=== PATIENT | female | born 1945 | race Caucasian/White ===

== ENCOUNTER 2016-09-29 19:14 | Emergency (ER) | payer MEDICARE, BC ==
[2011-09-06 06:36] VITALS: BMI 42.6
[2016-09-29 20:08] LABS: BASOPHILS 0.6 % (0.0-2.0); EOSINOPHILS 3.8 % (0-7); HEMATOCRIT 43.9 % (36.0-48.0); IMMATURE GRANULOCYTES 0.3 % (0-5); LYMPHOCYTES 27.5 % (15-50); MCH 31.8 pg (26.0-34.0); MCHC 34.2 g/dL (31.0-37.0); MCV 93.2 fL (80.0-100.0); MEAN PLATELET VOLUME 9.7 fL (7.4-10.4); MONOCYTES 8.4 % (2-11); NEUTROPHILS 59.4 % (40-80); PLATELET COUNT 231 10x3/uL (130-400); RBC 4.71 10x6/uL (4.00-5.40); RDW 13.7 % (11.5-14.5); WBC 11.4 10x3/uL (4.8-10.8)
[2016-09-29 20:28] LABS: ALBUMIN 3.5 g/dL (3.4-5.0); ALKALINE PHOSPHATASE 73 U/L (46-116); ALT (SGPT) 30 U/L (10-68); BILIRUBIN - TOTAL 0.46 mg/dL (0.2-1.3); CALC OSMOLALITY 285 mosm/kg (275-300); CALCIUM 9.4 mg/dL (8.5-10.1); CARBON DIOXIDE 30.4 mmol/L (21.0-32.0); CHLORIDE - SERUM 104 mmol/L (98-107); GLUCOSE 108 mg/dL (74-106); POTASSIUM - SERUM 3.3 mmol/L (3.5-5.1); PROTEIN - SERUM 7.2 g/dL (6.4-8.2); SODIUM 142 mmol/L (136-145); UREA NITROGEN 19 mg/dL (7-18); eGFR NON AFRICAN AMERICAN 58 mL/min (90-120)
[2016-09-29 20:39] LABS: CHOL - HDL RATIO 5.9 ratio (2.3-4.1); CHOLESTEROL, TOTAL 211 mg/dL (0-200); CKMB 1.7 U/L (0.0-3.6); CREATINE KINASE 94 UL (21-215); HDL CHOLESTEROL 36 mg/dL (32-96); LDL CHOLESTEROL 112 mg/dL (0-100); LDL-HDL RATIO 3.1 ratio (1.5-3.5); TRIGLYCERIDE 316 mg/dL (30-200)
[2016-09-29 20:48] LABS: TROPONIN-I < 0.017 ng/mL (0.000-0.060)
== END 2016-09-29 21:18 | disposition home or self-care (01) ==
LOC: D.ER 19:14
PROVIDERS: Emergency Medicine
DX: R07.9 Chest pain, unspecified (principal); E87.6 Hypokalemia; R00.1 Bradycardia, unspecified

== ENCOUNTER 2016-12-01 05:28 | Day surgery (SDC) | payer MEDICARE, BC ==
[2016-12-01] VITALS (8 sets, daily range): BP systolic 99–153; BP diastolic 58–76; Ht 160 cm; Wt 108.9 kg
[~2016-12-01] VITALS: Ht 160 cm; Wt 108.9 kg
[2016-12-01] MEDS ORDERED: SYNTHROID88 MCG PO (06:20)
[2016-12-01] MEDS ORDERED: BETAPACE 120 M120 MG PO (06:21)
[2016-12-01] MEDS ORDERED: DYAZIDE 37.5/251 CAP PO (06:22)
[2016-12-01] MEDS ORDERED: BAYER CHEWABLE81 MG PO (06:22)
[2016-12-01] MEDS ORDERED: CENTRUM SILVER1 TA1 PO (06:23)
[2016-12-01] MEDS ORDERED: FLUTICASONE PRO16 GM NASAL (06:23)
[2016-12-01 06:47] LABS: HEMATOCRIT 45.9 % (36.0-48.0); HEMOGLOBIN 15.5 g/dL (12-16); MCH 31.7 pg (26.0-34.0); MCHC 33.8 g/dL (31.0-37.0); MCV 93.9 fL (80.0-100.0); MEAN PLATELET VOLUME 9.9 fL (7.4-10.4); RBC 4.89 10x6/uL (4.00-5.40); RDW 13.6 % (11.5-14.5)
[2016-12-01 07:01] LABS: ANION GAP 14.4 mmol/L (8-16); CALCIUM 9.8 mg/dL (8.5-10.1); CARBON DIOXIDE 28.3 mmol/L (21.0-32.0); POTASSIUM - SERUM 3.7 mmol/L (3.5-5.1)
[2016-12-01 07:03] LABS: APTT 33.7 SECONDS (22.8-39.4); INR 0.96 (0.85-1.17); PROTIME 12.6 SECONDS (11.6-15.0)
--- NOTE | 2016-12-01 09:50 | NUR ---
PT TO ROOM FROM OR RECOVERY POST PACEMAKER IMPLANT. LEFT UPPER CHEST PACEMAKER NOTED WITH DRESSING CDI PLACED ON TOP, SIGNED AND DATED WITH TODAYS DATE. ICE PACK ON TOP OF AFFECTED AREA, SLING NOTED TO LEFT ARM. PT PLACED ON TELE RUNNING SR 60 BPM, NOT PACED. PT IS ALERT AND ORIENTED DENIES ANY NEEDS OR PAIN. SCDS AND RITCHIE HOSE NOTED TO BILAT LEGS. PIV NOTED TO R AC, SALINE LOCKED DRESSING ADHERED TO SKIN SWAB CAPS IN USE. FAMILY IS AT BEDSIDE. WILL CONT TO MONITOR PT, ADMISSION IS COMPLETE.
--- NOTE | 2016-12-01 12:07 | NUR ---
PT IS STILL ALERT AND ORIENTED DENIES ANY PAIN FROM SURGERY. FAMILY IS STILL AT BEDSIDE. VS ARE STILL WNL. PT STILL HAS LEFT ARM IN SLING. ASSISTED PT TO THE BATHROOM WITH MIN ASSIST. SCDS ARE STILL ON AND PATENT. WILL CONT TO MONITOR.
--- NOTE | 2016-12-01 15:00 | NUR ---
PT SITTING UP IN CHAIR. STOPCOCK WAS NOT TURNED OFF PRIOR TO AMBULATION AND BLOOD IS BACKING UP THROUGH TUBING AND DRIPPING. TUBING FLUSHES EASILY WITH NS. STOPCOCK DISCONTINUED AND J-LOOP ADDED. PT UP TO AMBULATE AROUND UNIT X 1 WITH FAMILY PRESENT.
--- NOTE | 2016-12-01 15:08 | NUR ---
SHOLA SUAREZ CHANGED SURGERY STOP COCK PIV TO J LOOP. DRESSING CHANGED AND ADHERED TO THE SKIN. PT IS UP AND WALKING AROUND THE UNIT.
--- NOTE | 2016-12-01 15:46 | NUR ---
PT IS UP WALKING AROUND THE FLOOR AGAIN, HOLDING HANDS WITH HER DOWN THE HALLWAY. PT STILL DENIES ANY S/S PAIN OR DISCOMFORT. PT RUNNING SR ON TELE 62 BPM. WILL CONT TO MONITOR
--- NOTE | 2016-12-01 18:32 | NUR ---
PT IS SITTING UP TO CHAIR DENIES ANY NEEDS AT THIS TIME
--- NOTE | 2016-12-01 18:49 | NUR ---
WHEN SCANNING PT PAIN MEDICATION EMAR POPPED UP 'CONFLICT". CALLED ADRI IN PHARM TO SEE IF IT HAD ANY OF PTS ALLERGIES A DERIVITIVE. SHE SAID IT WOULD BE OK FOR PT TO TAKE. PT TOOK MEDICATION.
[2016-12-02 00:42] VITALS: BP 120/50
[2016-12-02 06:10] VITALS: BP 126/66
--- NOTE | 2016-12-02 07:27 | NUR ---
PT SITTING UP TO CHAIR PT DENIES ANY NEEDS AT THIS TIME. PT WITH LEFT ARM SLING AND LEFT UPPER CHEST DRESSING FROM PACEMAKER PLACEMENT. PT IS ALERT AND ORIENTED, WILL CONT TO MONITOR
[2016-12-02 07:55] VITALS: BP 107/67
--- NOTE | 2016-12-02 11:07 | NUR ---
WENT OVER DC INSTRUCTIONS WITH PT PT VERBALIZES UNDERSTANDING. DC PIV WITH CATH TIP INTACT. DC TELE AND RETURNED TO PENCIL SORTER. HELPED PT GET DRESSED. PT IS WAITING FOR HER TO GET HERE. WILL LET STAFF KNOW WHEN HE ARRIVES.
--- NOTE | 2016-12-02 11:18 | NUR ---
VOLUNTEER WHEELED PT OUT TO FRONT ENTRANCE.
--- NOTE | 2016-12-04 13:32 | HP ---
PATIENT: ONUR UMRPHY MEDICAL RECORD: [id number] ACCOUNT: [id number] LOCATION:D.OPS : 47 ADMISSION DATE: 12/01/16 HISTORY AND PHYSICAL EXAMINATION ONUR Pelayo (71yo, F) ID# [id number]. Date/Time11/18/2016 10:[id number] Dept.N[facility] ClinicProviderEDFABIENNE DNUCAN MDInsuranceMed Primary[place] Insurance # : [id number] Employer Name : [employer] Secondary: [place] Insurance # : [id number] Policy/Group # : [id number] Referring Provider Name : BRETT HASKINS Prescription: [place] - Member is eligible. Chief Complaint tachy-mark syndrome Patient's Care Team Referring Provider (): BRETT HASKINS: [address] [address], , Electronic Musical Instrument Repairer: LISA ORTEGA MD: [address] [place] [phone], , Patient's Pharmacies [place] [address] (ERX): [phone] [facility] [id number], , Vitals 11/18/2016 10:43 am BP:120/80 sitting R arm 110/70 sitting L armHR:60R/RHt:5 ft 3 inWt:240 lbs BMI:42.5Allergies Reviewed Allergies ALLEGRALASIXLATEXSULFA (SULFONAMIDE ANTIBIOTICS)Medications Reviewed Medications amoxicillin 500 mg-potassium clavulanate 125 mg pttoxa74/02/17 filledPRIMEAspir- enteredCindy BrownFish Oil11/08/16 enteredCindy Brownfluticasone 50 mcg/actuation nasal spray,hyjyyvlqlv41/09/17 filledPRIMEhydroCHLOROthiazide 25 mg lezyda03/22/16 filledPRIMEHYDROcodone 10 mg-acetaminophen 325 mg ukjxuh18/20/12 filledCaremarkKlor-Con M20 mEq tablet,extended amxjumd80/12/17 filledPRIMEsotalol 120 mg tablet 0.5 tablet twice daily08/22/16 filledPRIMESynthroid 88mcq tablet daily11/08/16 Steph FranzSynthroid 88 mcg wgiqjs44/10/17 filledPRIMEtriamterene 37.5 mg-hydrochlorothiazide 25 mg xnhozz10/06/12 filledCaremarkUloric 40 mg xcyuwy68/06/16 filledPRIMEXarelto 15 mg tablet Take 1 tablet(s) every day by oral route.11/08/16 Steph FranzProble Reviewed Problems Sick sinus syndrome - Onset: 11/18/2016 Mammography abnormal Family History Discussed Family History Mother- Heart diseaseFather- BradycardiaNo family history of breast or ovarian cancerSocial History Discussed Social History Cardiology and General Family history of heart disease?: Y Smoking Status: Never smoker HISTORY AND PHYSICAL [id number] ONUR MURPHY High Cholesterol: Y High blood pressure: Y Obese: Y Diabetes: N Alcohol intake: None Diet: Regular Marital status: Caffe ine intake: Moderate (Notes: 3 cups of coffee daily) Surgical History Reviewed Surgical History Biopsy, breast, with needle localization - 08/16/2011 Removal of gallbladder - 1995 Anesth hysterectomy - 1980 - with BSO [employer]CH[employer]IC History (not configured) Past Medical History Discussed Past Medical History Arm Pain: Y Atrial fibrillation: Y Chest Pain: Y Cold feet and legs: Y Dizzy Spells: Y Hyperlipidemia: Y Pain in legs when walking: Y Stroke: Y Swelling of Ankles, Feet or Hands: Y Thyroid Problems: Y Documents for Discussion N/A Screening None recorded. HPI Dysrhythmia Reported by patient. Symptoms: bradycardia Frequency: moderate Limitations: mild Alleviating Factors: uncontrolled on current medication Notes: "I get dizzy. Dr. Ortega has decreased my sotalol." sick sinus syndrome ROS Patient reports light-headed on standing but reports no chest pain, no arm pain on exertion, no shortness of breath when walking, no shortness of breath when lying down, no palpitations, and no known heart murmur; dizziness presyncope. She reports arthralgias/joint pain and swelling in the extremities but reports no muscle aches, no muscle weakness, and no back pain. She reports no fever, no night sweats, no significant weight gain, no sign ificant weight loss, and no exercise intolerance. She reports no dry eyes, no irritation, and no vision change. She reports no difficulty hearing and no ear pain. She reports no frequent nosebleeds and no nose/sinus problems. She reports no sore throat, n o bleeding gums, no snoring, no dry mouth, no mouth ulcers, no oral abnormalities, and no teeth problems. She reports no jugular vein distension and no swollen glands. She reports no cough, no wheezing, no shortness of breath, and no coughing up blood. She reports no abdominal pain, no vomiting, normal appetite, no diarrhea, not vomiting blood, no HISTORY AND PHYSICAL [id number] AFELD,ONUR WILMER nausea, and no constipation. She reports no incontinence, no difficulty urinating, no hematuria, and no increased frequency. She reports no abnormal mole, no sharmin d ice, and no rashes. She reports no loss of consciousness, no weakness, no numbness, no seizures, no dizziness, and no headaches. She reports no depression, no sleep disturbances, feeling safe in relationship, and no alcohol abuse. She reports no fatigue. She reports no swollen glands and no bruising. She reports no runny nose, no sinus pressure, no itching, no hives, and no frequent sneezing. ROS as noted in the HPI Physical Exam Patient is a 71-year-old female. Constitutional: General Appearance healthy-appearing and obese. Level of Distress NAD. Ambulation ambulating normally. Cardiovascular: Apical Impulse not displaced or no thrill. Heart Auscultation normal s1 and s2; no murmurs, rubs, or gallops; and RRR. Arterial Pulses no abdominal aorta bruits, femoral bruits, or popliteal bruits and 2+ bilateral, carotid 2+ bilateral, femoral 2+ bilateral, popliteal 2+ bilateral, and dorsalis pedis 2+ bilateral. Edema no edema or varicosities. Lungs: Repiratory Effort no dyspnea. Percussion no hyperresonance or dullness or flatness. Auscultation no wheezing, rhonchi, or rales / crackles and breathing sounds normal, good air movement, and CTA except as noted. Abdomen: Bowl Sounds normal. Inspection and Palpation no tend erness, guarding, masses, or rebound tenderness and soft and non-distended. Liver non-tender and no hepatomegaly. Spleen non-tender and no splenomegaly. Hernia none palpable. Musculoskeletal System: Gait And Stance normal gait and stance. Digits and Nails normal nails and no cyanosis. Joints, Bones, and Muscles limited ROM. Neurologic: Cranial Nerves grossly intact. Reflexes DTRs 2+ bilaterally throughout. Sensation grossly intact. Lymph Nodes: Lymph Nodes no cervical LAD, supraclavicular LAD, axillary LAD, or inguinal LAD. Eyes: Lids and Conjunctivae no discharge or pallor and non-injected. Pupils PERRLA. Cornea grossly intact. EOM EOMI. Lens clear. Sclera non-icteric. Neck: Neck no masses, enlarged lymph nodes, or carotid bruits and supple and trachea midline. Thyroid no enlargement or nodules and non-tender. Skin: Inspection and Palpation no rash, lesions, ulcers, jaundice, or abnormal nevi. Assessment / Plan sick sinus syndrome Paroxysmal atrial fibrillation Profound bradycardia 1. Sick sinus syndrome I49.5: Sick sinus syndrome Discussion Notes sick sinus syndrome with symptomatic bradycardia I have discussed her disease process with her in detail as well as the alternative HISTORY AND PHYSICAL [id number] ONUR MURPHY methods of treatment. We discussed permanent pacemaker insertion including the expected benefits and risk which include bleeding, infection, stroke, and the imponderables. She understands all of the above and wishes to proceed with planned surgery. NOAH DUNCAN MD at 1332 CC: [id number] DICTATION DATE: 11/18/16 1015 HUMAN FACTORS ERGONOMIST: DM 11/26/[address] [facility] 12/02/16 [facility] [address] [place] [address]
--- NOTE | 2016-12-04 13:32 | OP ---
PATIENT NAME: ONUR MURPHY MEDICAL RECORD: [id number] :49 LOCATION:D.[facility] ADMISSION DATE: SURGEON: NOAH HERNANDEZ MD DATE OF OPERATION: 12/01/2016 SURGEON: Noah Hernandez MD. ANESTHESIA: General, Dr. Toribio. OPERATION PERFORMED: Insertion of dual chamber pacing system. PREOPERATIVE DIAGNOSIS: Sick sinus syndrome. POSTOPERATIVE DIAGNOSIS: Sick sinus syndrome. INDICATION FOR OPERATION: Symptomatic bradycardia. FINDINGS AT OPERATION: The pulse generator Medtronic Adapta ADDR01, serial number [id number]. Right ventricular lead Medtronic model number 759381, serial number [id number]. Ventricular lead Medtronic model number 4074-52, serial number [id number]. LEAD ANALYSIS: Atrial lead threshold 0.5 volts, current lead threshold 1 milliamp, resistance 674 ohms, P-wave 3.4. Ventricular lead threshold 0.5 volts, current lead threshold 1.2 milliamps, resistance 1420 ohms, R-wave 8.2. ESTIMATED BLOOD LOSS: Less than 5 cc. DESCRIPTION OF PROCEDURE: After informed consent and adequate preoperative medication and evaluation, the patient was brought to the operating room, placed on the table in the supine position. After induction of general endotracheal anesthesia and application of appropriate monitoring devices, the left chest was prepped and draped in a sterile field, utilizing Betadine scrub, alcohol and Betadine solution. A Betadine-impregnated drape was also used. A 1% lidocaine was infiltrated in the left subclavicular space. Incision was made and dissection carried down the fascia. Hemostasis maintained with electrocautery. A pacemaker pocket was formed. Subclavian vein was cannulated with the introducers, leads placed in the heart. The above electrophysiologic study was done and leads were secured and then connected to the pulse generator and pacemaker placed in the pocket. Pacemaker fired, captured and sensed appropriately. Pocket was irrigated. Instrument count and sponge count were correct times 2. Pocket was closed in layers utilizing 3-0 Vicryl on the deep subcutaneous tissue and 5-0 subcuticular Monocryl on the skin. Sterile dressings were applied. The patient tolerated the procedure well and was transferred to postanesthesia recovery in satisfactory condition. TRANSINT:[id number] Voice Confirmation ID: [id number] DOCUMENT ID: [id number] OPERATIVE REPORT [id number] ONUR MURPHY EDWARD MD at 1332 CC: [id number] DICTATION DATE: 12/01/16 09 WIRELESS CELLULAR TECHNICIAN: 12/01/16 1141 [facility] 12/02/16 [place] [id number] [place] [id number]
== END 2016-12-02 11:19 | disposition home or self-care (01) ==
LOC: D.OPS 05:28 → D.M2 08:57 → D.OPS 12-02 11:19
PROVIDERS: Internal Medicine Cardiovascular Disease
DX: I49.5 Sick sinus syndrome (principal); E78.00 Pure hypercholesterolemia, unspecified; I10 Essential (primary) hypertension; E66.9 Obesity, unspecified; Z68.41 Body mass index [BMI] 40.0-44.9, adult; Z86.73 Personal history of transient ischemic attack (TIA), and cerebral infarction without residual deficits; E07.9 Disorder of thyroid, unspecified; Z79.2 Long term (current) use of antibiotics; Z79.01 Long term (current) use of anticoagulants; Z79.891 Long term (current) use of opiate analgesic; Z79.899 Other long term (current) drug therapy; Z88.2 Allergy status to sulfonamides; Z01.812 Encounter for preprocedural laboratory examination

== ENCOUNTER → 2018-11-08 17:23 | Outpatient (CLI) | payer MEDICARE ==
[2016-12-01 09:55] VITALS: BMI 42.6
[~2018-11-08 17:23] MED LIST: BAYER CHEWABLE81 MG PO; BETAPACE 120 M120 MG PO; CENTRUM SILVER1 TA1 PO; DYAZIDE 37.5/251 CAP PO; FLUTICASONE PRO16 GM NASAL; SYNTHROID88 MCG PO
== END | disposition home or self-care (01) ==
LOC: D.LABREF 17:23
PROVIDERS: ATTEND Urology
DX: R33.9 Retention of urine, unspecified (principal)